=== PATIENT | male | born 1980 | race Caucasian/White ===

== ENCOUNTER → 2019-05-30 | Outpatient (CLI) | payer BC ==
--- NOTE | 2019-05-30 16:38 | PCVCIMAG ---
APPROVED REPORT Study performed: 05/30/2019 13:40:25 Exam: Stress Echocardiogram Indication: Chest pain , near syncope,numbness l arm,leg Patient Location: Echo lab Stress Nurse: Suma Epps RN Room #: 2 Status: routine Ht: 6 ft 3 in HR: 101 bpm BP: 114/84 mmHg Rhythm: NSR Medical History Medical History: No history of CAD Cardiac Risk Factors: HTN, Hyperlipidemia, FHX of CAD Previous Cardiac Procedures: none Pretest Chest Pain Characteristics: No chest pain Exercise History: Physically active Procedure The patient underwent an Exercise Stress Test using the Valerie Protocol. Blood pressure, heart rate, and EKG were monitored. An Echocardiogram was performed by ip/mosaic technician in four stages in quad fashion. At peak stress, four selected images were obtained and placed side by side with resting images for comparison. Stress Test Details Stress Test: Exercise stress testing was performed using a Valerie protocol. HR Resting HR: 101 bpmMax Heart Rate (APMHR): 181 bpm Max HR Achieved: 187 bpmTarget HR (85% APMHR): 153 bpm % of APMHR: 103 Recovery HR: 139 bpm HR response to stress: Normal HR response to stress BP Resting BP: 114/84 mmHg Max BP: 160/70 mmHg Recovery BP: 142/80 mmHg BP response to stress: Normal blood pressure response to stress. ECG Resting ECG: Sinus Rhythm Stress ECG: Sinus Rhythm, NSSTT changes ST Change: Non-ischemic Maximum ST Deviation: -0.35 mm Arrhythmia: PACs Recovery ECG: Sinus Rhythm Recovery ST Change: Non-ischemic Recovery Arrhythmia: rare PAC Clinical Reason for Termination: Maximal effort Stress Symptoms: fatigue Exercise duration: 9 min 18 sec Highest Stage Achieved: Stage 4: 4.2 mph at 16% grade. Exercise capacity: 11.0 METs Overall Exercise Capacity for Age: Good Scale: Active Angina Score: None No complications. Stress ECG Conclusion The patient exercised according to the VALERIE protocol for 9:18 mins; achieving a work level of 11.0 METS. The resting heart rate of 101 bpm radha to a maximum heart rate of 187 bpm. This value represent 103% of the maximal, age-predicted heart rate. The resting blood pressure of 114/84 mmHg, radha to a maximum blood pressure of 160/70 mmHg. The exercise test was stopped due to fatigue . Hudson Treadmill Score is 10.8 which is Low risk. Pre-Stress Echo The resting Echocardiogram showed normal left ventricular contractility with an estimated Ejection Fraction of about 55-60%. Normal wall motion in all segments on baseline images. Post-Stress Echo The stress Echocardiogram showed normal left ventricular contractility with an estimated Ejection Fraction of about 65-70%. Normal augmentation of wall motion in all segments on post stress images. Clinical No clinical or ECG evidence for ischemia. Conclusion Clinical Response: Non-ischemic Exercise Capacity: Average Stress ECG Response: Non-ischemic Stress Echo Images: Non-ischemic No clinical, EKG or echocardiographic evidence for ischemia. No echocardiographic evidence for exercise induced ischemia. Normal stress echocardiogram with maximal exercise stress. No prior study available for comparison. <Conclusion> No clinical, EKG or echocardiographic evidence for ischemia. No echocardiographic evidence for exercise induced ischemia. Normal stress echocardiogram with maximal exercise stress.
== END | disposition home or self-care (01) ==
LOC: PCVCIMAG 13:15
PROVIDERS: ATTEND Internal Medicine Cardiovascular Disease
DX: R07.9 Chest pain, unspecified (principal); R55 Syncope and collapse; R20.0 Anesthesia of skin; R06.02 Shortness of breath; Z82.49 Family history of ischemic heart disease and other diseases of the circulatory system
CPT/HCPCS: 93325; 93351